=== PATIENT | female | born 1985 | race Two or more races ===

== ENCOUNTER 2020-12-29 06:23 | Inpatient (IN) | payer OTHER ==
[~2020-12-29] VITALS: Ht 165.1 cm; Wt 87.3 kg
[2020-12-29] MEDS ORDERED: LACTATED RINGERS 1,000 ML IVBOLUS ONE (06:30)
[2020-12-29] MEDS ORDERED: METOCLOPRAMIDE 5 MG/ML, 2ML IV ONE (06:30)
[2020-12-29] MEDS ORDERED: SODIUM CITRATE/CITRIC ACID 30 ML UDC PO ONE (06:30)
[2020-12-29] MEDS ORDERED: OXYTOCIN 30U/ 0.9% NaCL 500ML 500 ML ONE (06:36)
[2020-12-29] MEDS ORDERED: METOCLOPRAMIDE 5 MG/ML, 2ML ONE (06:36)
[2020-12-29] MEDS ORDERED: SODIUM CITRATE/CITRIC ACID 15 ML UDC ONE (06:37)
[2020-12-29] MEDS ORDERED: NEWBORN KIT ONE (06:59)
[2020-12-29 07:08] LABS: BASOPHILS % (AUTO) 1 % (0-1); EOSINOPHILS % (AUTO) 1 % (1-7); LYMPHOCYTES % (AUTO) 32 % (22-44); MEAN CORPUSCULAR HEMOGLOBIN 29.9 pg (27.0-34.8); MEAN CORPUSCULAR HGB CONC 34.4 g/dL (32.4-35.8); MONOCYTES % (AUTO) 10 % (2-9); NEUTROPHILS % (AUTO) 57 % (42-75); PLATELET COUNT 279 x10^3/uL (130-400); RED BLOOD COUNT 3.52 x10^6/uL (3.82-5.3); RED CELL DISTRIBUTION WIDTH 14.4 % (9.6-15.2)
[2020-12-29] MEDS ORDERED: MISOPROSTOL 200 MCG TABLET ONE (07:09)
[2020-12-29] MEDS ORDERED: METHYLERGONOVINE 0.2 MG/ML IM PRN (07:30)
[2020-12-29] MEDS: LACTATED RINGERS 1,000 ML IV SCH ×5 (07:30→23:30)
[2020-12-29] MEDS ORDERED: MORPHINE SULFATE 4 MG/ML, 1ML IVPush PRN (07:30)
[2020-12-29] MEDS: OXYTOCIN 30U/ 0.9% NaCL 500ML 500 ML IV SCH ×2 (07:30→17:30)
[2020-12-29] MEDS ORDERED: ONDANSETRON 2MG/ML, 2ML IV PRN (07:30)
[2020-12-29] MEDS ORDERED: morphine SULFATE 10 MG/ML, 1ML IVPush PRN (07:30)
[2020-12-29] MEDS ORDERED: CARBOPROST TROMETHAMINE 250 MCG/ML, 1ML IM PRN (07:30)
[2020-12-29] MEDS ORDERED: ACETAMINOPHEN 325 MG TABLET PO PRN (07:30)
[2020-12-29] MEDS ORDERED: MISOPROSTOL 200 MCG TABLET PR PRN (07:30)
[2020-12-29] MEDS ORDERED: SIMETHICONE 80 MG CHEW TAB PO PRN (07:30)
[2020-12-29] MEDS ORDERED: EPHEDRINE 50 MG/ML, 1ML IVPush PRN (09:00)
[2020-12-29] MEDS ORDERED: FENTANYL PF 100 MCG/2ML IV PRN (09:00)
[2020-12-29] MEDS: PRENATAL VIT/IRON/FA 1 EACH TABLET PO SCH (09:00)
[2020-12-29] MEDS ORDERED: ONDANSETRON 2MG/ML, 2ML IVPush PRN (09:00)
[2020-12-29] MEDS ORDERED: LABETALOL 5MG/ML, 20ML IV PRN (09:00)
[2020-12-29] MEDS ORDERED: HYDROmorphone 1 MG/ML, 1ML INJ IVPush PRN (09:00)
[2020-12-29] MEDS ORDERED: MEPERIDINE/PF 25MG/0.5ML IVPush PRN (09:00)
[2020-12-29] MEDS ORDERED: DIPHENHYDRAMINE 50 MG/ML, 1ML IVPush PRN (09:00)
[2020-12-29] MEDS ORDERED: OXYcodone 5 MG/5 ML ORAL.SOL UDC PO PRN (09:00)
[2020-12-29 11:30] VITALS: BP 101/64
[2020-12-29] MEDS: OXYcodone/APAP 5/325MG TABLET PO PRN ×3 (13:58→23:12)
[2020-12-29] MEDS: KETOROLAC 30 MG/1 ML IVPush SCH ×2 (14:30→20:33)
[2020-12-29 15:30] VITALS: BP 95/56
[2020-12-29 16:48] LABS: BASOPHILS % (AUTO) 0 % (0-1); EOSINOPHILS % (AUTO) 0 % (1-7); LYMPHOCYTES % (AUTO) 21 % (22-44); MEAN CORPUSCULAR HEMOGLOBIN 29.2 pg (27.0-34.8); MEAN CORPUSCULAR HGB CONC 34.1 g/dL (32.4-35.8); MONOCYTES % (AUTO) 7 % (2-9); NEUTROPHILS % (AUTO) 71 % (42-75); PLATELET COUNT 256 x10^3/uL (130-400); RED BLOOD COUNT 3.39 x10^6/uL (3.82-5.3); RED CELL DISTRIBUTION WIDTH 14.3 % (9.6-15.2)
[2020-12-29 20:00] VITALS: BP 97/59
[2020-12-30 00:30] VITALS: BP_SYST 100; BP_SYST 99; BP_DIAS 61; BP_DIAS 62
[2020-12-30] MEDS: KETOROLAC 30 MG/1 ML IVPush SCH ×2 (02:49→08:38)
[2020-12-30] MEDS: LACTATED RINGERS 1,000 ML IV SCH ×6 (03:30→23:30)
[2020-12-30] MEDS: OXYTOCIN 30U/ 0.9% NaCL 500ML 500 ML IV SCH ×3 (03:30→23:30)
[2020-12-30 04:40] VITALS: BP 97/61
[2020-12-30] MEDS: OXYcodone/APAP 5/325MG TABLET PO PRN ×5 (04:54→21:11)
[2020-12-30 07:30] VITALS: BP 106/63
[2020-12-30] MEDS: PRENATAL VIT/IRON/FA 1 EACH TABLET PO SCH (08:38)
[2020-12-30] MEDS: DOCUSATE 100 MG CAPSULE PO PRN ×2 (08:38→21:10)
[2020-12-30] MEDS: FERROUS SULFATE 325 MG TABLET PO SCH ×2 (15:14→21:10)
[2020-12-30] MEDS: IBUPROFEN 600 MG TABLET PO PRN ×2 (15:14→21:10)
[2020-12-30 19:30] VITALS: BP 99/63
[2020-12-31] MEDS: IBUPROFEN 600 MG TABLET PO PRN (05:42)
[2020-12-31] MEDS: OXYcodone/APAP 5/325MG TABLET PO PRN (05:43)
[2020-12-31] MEDS: LACTATED RINGERS 1,000 ML IV SCH ×2 (07:22→09:30)
[2020-12-31] MEDS: FERROUS SULFATE 325 MG TABLET PO SCH (07:31)
[2020-12-31] MEDS: DOCUSATE 100 MG CAPSULE PO PRN (07:31)
[2020-12-31] MEDS: PRENATAL VIT/IRON/FA 1 EACH TABLET PO SCH (07:31)
[2020-12-31 07:47] VITALS: BP 110/68
[2020-12-31] MEDS ORDERED: SENN-190 PO (09:06)
[2020-12-31] MEDS ORDERED: OXYC1TAB14 PO (09:06)
[2020-12-31] MEDS ORDERED: IBUP-1222 PO (09:06)
[2020-12-31] MEDS: OXYTOCIN 30U/ 0.9% NaCL 500ML 500 ML IV SCH (09:30)
== END 2020-12-31 10:50 | disposition home or self-care (01) | DRG 788 ==
LOC: LDIP 06:23 → 2NW 10:46
PROVIDERS: ADMIT Obstetrics & Gynecology; ATTEND Obstetrics & Gynecology
PROC: 10D00Z1 Extraction of Products of Conception, Low, Open Approach (ICD-10-PCS; principal; 2020-12-29)
DX: O99.284 Endocrine, nutritional and metabolic diseases complicating childbirth (principal); O12.04 Gestational edema, complicating childbirth; O34.211 Maternal care for low transverse scar from previous cesarean delivery; Z37.0 Single live birth; E28.2 Polycystic ovarian syndrome; E78.00 Pure hypercholesterolemia, unspecified; Z3A.39 39 weeks gestation of pregnancy; Z20.822 Contact with and (suspected) exposure to COVID-19
CPT/HCPCS: 36415; 85025; 86592; 86850; 86900; 87635; G0378; J1885; J2765